=== PATIENT | male | born 1940 | race Caucasian/White ===

== ENCOUNTER 2020-12-04 10:17 | Inpatient (IN) | payer OTHER, MEDICARE ==
[~2020-12-04] VITALS: Ht 170.2 cm; Wt 64.4 kg
--- NOTE | ~2020-12-04 | EMS ---
[address] [address] EMS Patient Care Report Name: LUCILA,HOMER Room #: 458-P ADM IN M.R.#: [id number] Admission: 12/04/20 Attend Phys: Calvin Xiong MD Discharge: Date of : 39 Report #: [id number] THIS REPORT FOR: //name// Report Transmitted: 12/05/2020 10:31 EMS Care Summary [place], [place]/[facility] Incident [id number] @ 12/04/2020 09:41 Incident Location [id number] [place] [address] Patient HOMER LUCILA Male, 80 Years 1940 Patient Address [address] [place] [address] Patient History Cardiac Arrythmia, Patient Allergies Sulfa, Patient Medications Metoprolol, Flecainide, Synthroid, Chief Complaint Chest Pain After Fall Disposition Transported No Lights/[place] Dispatch Reason Chest Pain (Non-Traumatic) Transported To [facility] Narrative pt states that he was getting out of bed go to the bathroom this morning when he got dizzy and fell. pt states that he had skin tears on his arms after the fall. pt states that he was able to crawl back in bed. pt called his sister to come bandage his his arm. pts sister states that while she was there pt [address] [address] EMS Patient Care Report Name: LUCILA,HOMER Room #: 458-P ADM IN M.R.#: [id number] Admission: 12/04/20 Attend Phys: Calvin Xiong MD Discharge: Date of : 39 Report #: [id number] attempted to get out of bed again and fell. pts sister requested ems. upon ems arrival, pt found walking to stretcher w/ assistance from p28 crew. pt assisted to stretcher by ems and p28 crew. pt secured to stretcher using seat belts. Initial Vitals @10:00P: 65,BP: 101/64,CO: 0,SpO2: 98, @09:56P: 71,R: 16,BP: 105/68,Pain: 8/10,GCS: 15,SpO2: 97,Revised Trauma: 12, Assessments @09:54MENTAL:Person Oriented,Place Oriented,Time Oriented,Event Oriented,SKIN:HEENT:Eyes: Left Pupil: 3-mm,Eyes: Right Pupil: 3-mm,LUNG SOUNDS:ABDOMEN:PELVIS//GI:EXTREMITIES:Capillary Refill: Left Upper: < 2 Sec,PULSE:Radial: 2+ Normal,NEURO: Impression Injury of Thorax (Upper Chest) Procedures @09:54ALS AssessmentResponse: UnchangedSucceeded@09:593-Lead ECGResponse: UnchangedSucceeded Timeline 09:39,Call Received 09:39,Dispatch Notified 09:41,Dispatched 09:43,En Route 09:51,On Scene 09:54,At Patient 09:54,ALS Assessment,Response: UnchangedSucceeded, 09:56,BP: 105/68 M,PULSE: 71,RR: 16 R,SPO2: 97 Ox,ETCO2: ,BG: ,PAIN: 8,GCS: 15, 09:59,3-Lead ECG,Response: UnchangedSucceeded, 10:00,BP: 101/64 M,PULSE: 65,RR: R,SPO2: 98 Ox,ETCO2: ,BG: ,PAIN: ,GCS: , 10:02,Depart Scene 10:11,At Destination 10:23,Call Closed Disclaimer v1.1 Copyright 2020 [employer] This EMS Care Summary contains data elements from the applicable legal record (which may be displayed differently). It is designed to provide pertinent information for the following purposes: continuity of care, clinical quality, and state data reporting. The complete legal record is available to ED staff and administrators of the receiving hospital in [employer]'s Patient Tracker. All data is provided "as is."
--- NOTE | ~2020-12-04 | HC ---
[facility] [place] [address] CONSULTATION Name: LUCILA,HOMER Room #: 458-[facility] IN M.R.#: [id number] Admission: 12/04/20 Attend Phys: Calvin Xiong MD Discharge: Date of : 39 Report #: [id number] THIS REPORT FOR: cc: Antonieta Maria K. Steven DO Smithson, David G. MD ~ HISTORY OF PRESENT ILLNESS: The patient is an 80-year-old white male with history of arrhythmias, who was admitted with a fall with dizziness. He has had recurrent falls over the last couple of weeks. No loss of consciousness or head trauma. He has been admitted, diagnosed with pneumonia, hyponatremia, has multiple bruises and lacerations. He was evaluated by Physical Therapy, but they held off as he has a significant bruise involving the left knee and there is some swelling and there is noted to be a possible x-ray which the staff is arranging. We are seeing him in rehabilitation medicine consultation. PAST MEDICAL HISTORY: Includes arrhythmia, recent COVID vaccination Brayden and Brayden a couple of weeks ago. MEDICATIONS: Please see the full medication listing. ALLERGIES: No known drug allergies. SOCIAL HISTORY: Lives in a house alone 4-5 steps in, then in the living area there is another 5-8 steps up to the bedroom. It sounds like he has a split level type house. He did use a cane in the evenings when he get up to go to the bathroom. Otherwise, he has a walker or cane available. He has an involved sister that lives in the [place] area as well as involved neighbor. REVIEW OF SYSTEMS: Did not offer any current complaints of chest pain, shortness of breath or abdominal discomfort. He has some discomfort with his multiple areas of bruising from the falls. PHYSICAL EXAMINATION: GENERAL: He is a pleasant 80-year-old white male, somewhat hard of hearing, pleasant, rather irradiate. VITAL SIGNS: Temperature 98.2, pulse 88, respirations 18, blood pressure 122/70. He is alert, pleasant, oriented. HEENT: Appeared to be benign. NEUROLOGIC: Cranial nerves are grossly intact. Functional range of motion of both upper extremities without obvious focal weakness. Lower extremities: He does have significant bruising of the medial knee, including across the anterolateral wasserman. He is able to lift up the left lower extremity, however, and flexes at the hip and the knee without obvious discomfort. I did not do a focal directed knee examination as I understand there may be some x-rays that are pending. No focal calf swelling. Can dorsiflex the left ankle. Strength [address] [address] CONSULTATION Name: LUCILA,HOMER Room #: [address] [place] [address] IN M.R.#: [id number] Admission: 12/04/20 Attend Phys: Calvin Xiong MD Discharge: Date of : 39 Report #: [id number] is probably at least a grade 4-/5 distally. Right lower extremity reveals strength at probably a 3+ to 4-/5. No focal calf swelling. ASSESSMENT: An 80-year-old white male with the following problem list: 1. Pneumonia. 2. History of multiple falls at home. 3. Multiple bruises, extremity lacerations with a left knee bruise and apparent x-ray that is being arranged. 4. History of dizziness/weakness. 5. Hyponatremia on normal saline hydration, sodium was noted to be 129. 6. History of arrhythmia. 7. Moderate protein calorie malnutrition. PLAN: Physical therapy was temporarily placed on hold with the left knee bruising and swelling as noted above. We will be glad to follow along with you regarding his rehab therapy needs. By: [id number] Gabo Ford MD /nt
[2020-12-04 10:23] VITALS: BP 122/67
[2020-12-04 10:39] LABS: ABSOLUTE NEUTROPHILS 10.8 thou/uL (1.4-8.2); BASOPHILS 0.4 % (0.0-2.0); EOSINOPHILS 0.1 % (0.0-3.0); HEMATOCRIT 39.1 % (42.0-52.0); HEMOGLOBIN 13.4 gm/dL (14.0-18.0); LYMPHOCYTES 6.3 % (24.0-44.0); MCH 34.1 pg (26.0-34.0); MCHC 34.2 g/dL (28.0-37.0); MCV 99.7 fL (80.0-100.0); PLATELET COUNT 334 thou/uL (150-400); POLYS 87.2 % (36.0-66.0); RBC 3.93 mil/uL (4.50-6.00); WBC 12.4 thou/uL (4.0-11.0)
[2020-12-04 10:53] LABS: ANION GAP 12 mmol/L (7-16); BUN 10 mg/dL (7-18); CALCIUM 8.6 mg/dL (8.5-10.1); CHLORIDE 95 mmol/L (98-107); CO2 22 mmol/L (21-32); GLUCOSE 159 mg/dL (74-106); POTASSIUM 4.2 mmol/L (3.5-5.1); SODIUM 129 mmol/L (136-145)
[2020-12-04 11:02] LABS: ALBUMIN 3.3 g/dL (3.4-5.0); SGOT 23 U/L (15-37); SGPT 23 U/L (16-63); TOTAL BILIRUBIN 0.6 mg/dL (0.2-1.0); TOTAL PROTEIN 6.7 g/dL (6.4-8.2); TROPONIN-I <0.06 ng/mL (<0.06)
--- NOTE | 2020-12-04 11:40 | EKG ---
[address] [place] [address] ELECTROCARDIOGRAM REPORT Name: FRANCISCO GAYTAN [id number] Admission: Attend Phys: Discharge: Date of : 38 Report #: [id number] [facility] ED Test Date: 2020-12-04 Test Time: 10:55:44 Pat Name: ZENYR LUCILA Department: Room: Gender: Certified Hyperbaric Technician: OBED : 1940 Requested By: Tony Diaz Order Number: [id number] MD: Arnaldo Rutledge Measurements Intervals [place] Rate: 58 P: 57 [place]: 163 QRS: -51 QRSD: 135 T: 49 QT: 442 QTc: 435 Interpretive Statements Sinus rhythm RBBB and LAFB No previous ECG available for comparison Electronically Signed On 12-04-2020 11:39:46 CDT by Arnaldo Rutledge [email or web address] <ELECTRONICALLY SIGNED> By: Arnaldo Rutledge MD, [facility] 12/04/20 1139 1055 1055 Arnaldo Rutledge MD, FACC /EPI
[2020-12-04 14:34] LABS: FOLIC ACID 29.9 ng/mL (8.6-58.9)
[2020-12-04 17:33] LABS: URINE BILIRUBIN NEGATIVE (Negative); URINE BLOOD 1+ (Negative); URINE CLARITY CLEAR; URINE COLOR YELLOW; URINE GLUCOSE-RANDOM* NEGATIVE (Negative); URINE KETONES TRACE (Negative); URINE LEUKOCYTES-REFLEX NEGATIVE (Negative); URINE NITRITE-REFLEX NEGATIVE (Negative); URINE PROTEIN (DIPSTICK) NEGATIVE (Negative); URINE UROBILINOGEN 0.2 E.U./dl (0.2-1.0)
[2020-12-04 17:47] VITALS: BP 129/87
[2020-12-04 18:04] LABS: SQUAMOUS None Seen /LPF (0-3)
[2020-12-04 18:05] LABS: BACTERIA-REFLEX 1-9 Few /HPF (None Seen); CASTS None Seen /LPF (None Seen); URINE RBC 3-10 Few /HPF (NONE SEEN); URINE WBC-REFLEX 0-5 Rare /HPF (0-5)
[2020-12-04 18:06] LABS: CRYSTALS None Seen /LPF (None Seen)
--- NOTE | 2020-12-04 18:42 | NUR ---
PATIENT ON UNIT AROUND 1809. VITAL SIGNS TAKEN AND PATIENT ORIENTED TO ROOM.
[2020-12-04 19:50] VITALS: BP 120/73
--- NOTE | 2020-12-05 01:53 | NUR ---
PT WAS IN BED DURING SHIFT AND WAS REPORTED TO JUST GET TO THE UNIT FROM THE ER.PT IS A/O X4.PT ADMITTED WITH C/O MULTI FALL AND PT HAS TEARS ON VISHNU UPPER EXTREMITY.PT IS [employer] AND DIDNOT BRING HEARING AIDS.ADMISSION ASSESSMENT AND PICTURES TAKEN.PT DENIED PAIN AND N/V. TEARS COVERED WITH BOREDR FOAM.PT IS ON TELE.WILL CONTINUE TO MONITOR
[2020-12-05 05:36] LABS: ABSOLUTE NEUTROPHILS 4.5 thou/uL (1.4-8.2); BASOPHILS 0.8 % (0.0-2.0); EOSINOPHILS 0.3 % (0.0-3.0); HEMATOCRIT 34.2 % (42.0-52.0); HEMOGLOBIN 11.8 gm/dL (14.0-18.0); LYMPHOCYTES 17.8 % (24.0-44.0); MCHC 34.4 g/dL (28.0-37.0); MCV 98.8 fL (80.0-100.0); MONOCYTES 8.8 % (1.0-8.0); PLATELET COUNT 289 thou/uL (150-400); POLYS 72.3 % (36.0-66.0); RBC 3.46 mil/uL (4.50-6.00); RDW 14.1 % (10.5-14.5); WBC 6.2 thou/uL (4.0-11.0)
[2020-12-05 05:43] LABS: CREATININE 0.6 mg/dL (0.7-1.3); POTASSIUM 3.6 mmol/L (3.5-5.1)
[2020-12-05 07:35] VITALS: BP 122/70
--- NOTE | 2020-12-05 14:51 | NUR ---
ASSUMED PT CARE THIS AM. PT A&OX4, ABLE TO MAKE NEEDS KNOWN. PATIENT IS HARD OF HEARING. PATIENT HAS REMAINED CONTINENT THIS SHIFT. IV PATENT, MEDICATIONS GIVEN WITHOUT ISSUE. DRESSINGS ARE C/D/I. PATIENT IS ON ROOM AIR. PATIENT REMAINS ON TELE. FALL PRECAUTIONS ARE IN PLACE, CALL LIGHT WITHIN REACH. PATIENT REPORTS NO PAIN, NUMBNESS, OR TINGLING. THIS PATIENT WAS NOTICED TO HAVE SOME SWELLING AND BRUISING TO LEFT KNEE, HOSPITALIST WAS MADE AWARE.
[2020-12-05 16:25] VITALS: BP 128/88
[2020-12-05 20:18] VITALS: BP 139/83
--- NOTE | 2020-12-06 06:35 | NUR ---
PATIENT IS [place]. PATIENT C/O CONSTIPATION PRN MILARAX GIVEN AWAITING FOR RESULTS.FALL PRECAUTION IN PLACE. PATIENT IN BED ASLEEP AT THIS TIME BREATHING REGULAR AND UNLABOURED.
[2020-12-06 07:50] VITALS: BP 112/80
--- NOTE | 2020-12-06 11:56 | NUR ---
ASSUMED PT CARE THIS AM. PT A&OX4, ABLE TO MAKE NEEDS KNOWN. IV PATENT, MEDICATIONS INFUSED WITHOUT ISSUE. PATIENT TOOK PO MEDICATIONS WELL. PATIENT LEFT KNEE SWOLLEN, BUT PATIENT REPORTING NO PAIN. PATIENT IS EXTREMELY HARD OF HEARING, ABLE TO READ WITHOUT DIFFICULTY. PATIENT AMBULATING WITH PHYSICAL THERAPY AND HEART RATE RANGED FROM 160'S TO 200'S, ACTIVITY STOPPED TO ALLOW HEART RATE TO DECREASE. HOSPITALIST ORDERED AN EKG AND A CARDIOLOGY CONSULT. PATIENT REMAINS CONTINENT OF BLADDER. ON ROOM AIR. FALL PRECAUTIONS ARE IN PLACE, CALL LIGHT WITHIN REACH.
--- NOTE | 2020-12-06 12:02 | EKG ---
[address] [address] ELECTROCARDIOGRAM REPORT Name: FRANCISCO GAYTAN Room #: 458- ADM IN M.R.#: [id number] Admission: 12/04/20 Attend Phys: Calvin Xiong MD Discharge: Date of : 39 Report #: [id number] [facility] Test Date: 2020-12-06 Test Time: 10:38:04 Pat Name: ZENYR LUCLIA Department: Room: [facility] Gender: M E Tailer: SBULPONCHO : 1940 Requested By: Calvin Xiong Order Number: [id number] : Arnaldo Rutledge Measurements Intervals [place] Rate: 113 P: 78 SC: 150 QRS: -52 QRSD: 122 T: 44 QT: 338 QTc: 464 Interpretive Statements Sinus tachycardia with irregular rate RBBB and LAFB Compared to ECG 12/04/2020 10:55:44 Sinus rhythm no longer present Electronically Signed On 12-06-2020 12:02:01 CDT by Arnaldo Rutledge [email or web address] <ELECTRONICALLY SIGNED> By: Arnaldo Rutledge MD, [facility] 12/06/20 1202 1038 1038 Arnaldo Rutledge MD, FACC /EPI
--- NOTE | 2020-12-06 13:33 | 2DMMODE ---
[facility] [place] [address] 2 D/M-MODE ECHOCARDIOGRAM Name: LUCILAHOMER Room #: 458-P ADM IN M.R.#: [id number] Admission: 12/04/20 Attend Phys: Calvin Xiong MD Discharge: Date of : 39 Report #: [id number] THIS REPORT FOR: cc: Antonieta Maria K. Steven DO Santiago, Patrick MD [facility] ~ APPROVED REPORT Study performed: 12/06/2020 12:41:09 EXAM: Comprehensive 2D, Doppler, and color-flow Echocardiogram Patient Location: Bedside Room #: [facility] Status: routine BSA: 1.75 HR: 130 bpm BP: 112/80 mmHg Rhythm: TACHY/ARRHYTHMIA/RBBB Other Information Study Quality: Fair/not all measurements taken. Indications Arrhythmia. (Heart rate ranged from 100-150 during exam). 2D Dimensions IVSd: 10.18 (7-11mm) LVOT Diam: 19.54 (18-24mm) LVDd: 40.85 mm PWd: 8.85 (7-11mm) LVDs: 31.06 (25-40mm) Aortic Valve AoV Peak Bob.: 1.37 m/s AO Peak Gr.: 7.51 mmHg LVOT Max P.01 mmHg LVOT Max V: 0.87 m/s FREEMAN Vmax: 1.90 cm2 Mitral Valve E/A Ratio: 0.7 MV Decel. Time: 179.42 ms MV E Max Bob.: 0.50 m/s MV A Bob.: 0.76 m/s [facility] [address] [place] [address] 2 D/M-MODE ECHOCARDIOGRAM Name: LUCILA,HOMER Room #: 458-P [facility] IN .R.#: [id number] Admission: 12/04/20 Attend Phys: Calvin Xiong MD Discharge: Date of : 39 Report #: [id number] MV PHT: 52.03 ms Tricuspid Valve TR Peak Bob.: 2.53 m/s TR Peak Gr.: 26.00 mmHg Left Ventricle The left ventricle is normal size. There is normal LV segmental wall motion. There is normal left ventricular wall thickness. Left ventricular systolic function is normal. LVEF is 55%. Mild diastolic dysfunction is present (impaired relaxation pattern). Right Ventricle The right ventricle is normal size. The right ventricular systolic function is normal. Atria The left atrium size is normal. The right atrium size is normal. Aortic Valve The aortic valve is not well visualized. Leaflets appear mildly calcified. No aortic regurgitation is present. There is no aortic valvular stenosis. Mitral Valve The mitral valve is normal in structure. Trace mitral regurgitation. Tricuspid Valve The tricuspid valve is normal in structure. Trace tricuspid regurgitation. Estimated PAP is 26mmHg plus the Right atrial pressure. Pulmonic Valve Pulmonic valve is not well visualized. Great Vessels The aortic root is normal in size. Ascending aorta is not well visualized. IVC is not well visualized. Pericardium There is no pericardial effusion. <Conclusion> [facility] [address] [place] [address] 2 D/M-MODE ECHOCARDIOGRAM Name: LUCILA,HOMER Room #: 458-P [facility] IN M.R.#: [id number] Admission: 12/04/20 Attend Phys: Calvin Xiong MD Discharge: Date of : 39 Report #: [id number] Tachycardia/atrial fibrillation during the study Normal left ventricular size/wall thickness Ejection fraction 60% Normal right ventricular size/function Normal atrial size Color-flow Doppler study was performed of the aortic/mitral/tricuspid/pulmonary valve Aortic valve mildly calcified, no stenosis Trace mitral valve insufficiency Trace tricuspid valve insufficiency Pulmonary systolic pressure estimated 26 mmHg Ascending aorta not well visualized No pericardial effusion <ELECTRONICALLY SIGNED> By: Arnaldo Rutledge MD, FACC 12/06/20 1333 32 32 Arnaldo Rutledge MD, FACC /INF
--- NOTE | 2020-12-06 14:40 | NUR ---
PT ADMITTED RELATED TO FALLS, DIZZINESS. CM REVIEWED CHART AND SPOKE WITH CARE TEAM. CM MET WITH PT AT BEDSIDE THIS DAY. PT APPEARED TO BE A&O X4 BUT VERY [place]. CM CALLED PT'S SISTER WHO RESIDES IN [place]. SHE INDICATED PT RESIDES IN A HOUSE ALONE WITH 6 STEPS TO ENTER AND 6 STEPS INSIDE. SHE INDICATED PT USES A WALKING STICK/CANE AND A FWW FOR ASSISTANCE WITH AMBULATION. PT HAD BEEN INDEPEDNENT WITH ADLS MARINA MANAGER. PT INDICATED HE IS RECEPTIVE TO REHAB STAY. ORTHO AND CARDIOLOGY CONSULTED. XRAY ORDERED FOR POSIBLE ASPIRATION. PT TO HAVE AN ECHO. 5N CONSULTED AND INDICATED THEY COULD ACCEPT PT ONCE MEDICALLY STABLE. PT IS AGREEABLE. CM FOLLOWING REGARDING DC PLANNING.
[2020-12-06 16:50] VITALS: BP 133/78
[2020-12-06 20:03] VITALS: BP 125/87
[2020-12-07 00:06] LABS: GLYCOHEMOGLOBIN (HGB A1C) 5.4 % (4.8-5.6)
--- NOTE | 2020-12-07 06:03 | NUR ---
PT TRANSFERRING TO BEDSIDE COMMODE WITH ASSIST AND IS TOLERATING FAIR. SEVERAL BM'S THIS SHIFT. DENIES PAIN. RESTING COMFORTABLY. NO NEEDS VOICED. CALL LIGHT WITHIN REACH. FREQUENT OBSERVATION.
[2020-12-07 07:30] VITALS: BP 124/77
--- NOTE | 2020-12-07 07:33 | NUR ---
Assume patient care at 7:30am.
--- NOTE | 2020-12-07 07:48 | NUR ---
Patient HR elevated, arrhythmia; according to the night guard report, patient had quite a few bowl movements last night; DIRECTOR PROCESS IMPROVEMENT reported that the patient put his finger into his throat and vomited. Called the number of Dr. Mcintosh, no response. Texted Dr. Xiong about the situation. Patient has not had complaint so far.
--- NOTE | 2020-12-07 11:56 | NUR ---
ORTHO ASSESSED PT AND INDICATED NO INTERVENTION INDICATED. CARDIOLOGY ASSESSED AND INDICATED THAT THEY WILL CONTINUE TO MONITOR ON TELE. CARE TEAM INDICATED THAT PT WILL REMAIN ON TELE TO BE MONITORED BY CARDIOLOGY OVER THE WEEKEND. ANTICIPATE DC TO 5N ONCE MEDICALLY STABLE BEGINING OF NEXT WEEK. CM FOLLOWING REGARDING DC PLANNING.
[2020-12-07 16:04] VITALS: BP 122/84
--- NOTE | 2020-12-07 19:36 | NUR ---
Patient got up without calling, pocked his throat to vomit 3 times this am, voicing that there was bad taste in the throat. primary doctor was aware of it.
[2020-12-07 20:42] VITALS: BP 135/78
--- NOTE | 2020-12-08 03:03 | NUR ---
PT CARE ASSUMED WITH PT IN BED WATCHING TV.PT IS A/O X4.PT IS UP TO BSC WITH X1 ASSIST AND USES A URINAL.PT HAS TEARS ON VISHNU UE FROM FALLS.PT TAKE MEDS WHOLE WITH NO ISSUES AND DENIED PAINS.WILL CONTINUE TO MONITOR
[2020-12-08 07:16] VITALS: BP 127/79
[2020-12-08 11:31] LABS: ABSOLUTE NEUTROPHILS 3.8 thou/uL (1.4-8.2); BASOPHILS 1.1 % (0.0-2.0); EOSINOPHILS 1.7 % (0.0-3.0); HEMATOCRIT 37.2 % (42.0-52.0); HEMOGLOBIN 12.8 gm/dL (14.0-18.0); MCH 33.8 pg (26.0-34.0); MCHC 34.4 g/dL (28.0-37.0); MCV 98.3 fL (80.0-100.0); MONOCYTES 9.9 % (1.0-8.0); PLATELET COUNT 375 thou/uL (150-400); POLYS 67.3 % (36.0-66.0); RBC 3.79 mil/uL (4.50-6.00); RDW 14.1 % (10.5-14.5); WBC 5.7 thou/uL (4.0-11.0)
[2020-12-08 12:00] LABS: ALBUMIN 3.1 g/dL (3.4-5.0); CALCIUM 8.6 mg/dL (8.5-10.1); CREATININE 0.8 mg/dL (0.7-1.3); MAGNESIUM 1.9 mg/dL (1.8-2.4); POTASSIUM 4.2 mmol/L (3.5-5.1); TOTAL BILIRUBIN 0.6 mg/dL (0.2-1.0); TOTAL PROTEIN 6.9 g/dL (6.4-8.2)
--- NOTE | 2020-12-08 15:33 | NUR ---
5N FOLLOWING FOR REHAB ADMISSION. PATIENT IS NOT ABLE TO ADMIT AT THIS TIME DUE TO CONTINUED TELEMONITORING NEEDS.
[2020-12-08 16:05] VITALS: BP 128/79
--- NOTE | 2020-12-08 17:14 | NUR ---
Patient is wanting to walk in hallways and he is very weak. Nurse explained to patient he is suppose to disharge to rehab next week to get stronger so he can walk more. Right forearm IV infiltrated. Nurse and charge nurse tried to place IV and was unable to. IV nurse paged.
[2020-12-08 20:48] VITALS: BP 134/71
--- NOTE | 2020-12-09 05:51 | NUR ---
Pt. rested quietly during the night when checked on during frequent rounds. He wanted one tylenol for c/o pain to his left side of his ribs (see emar) which was helpful. Bed alarm is on.
--- NOTE | 2020-12-09 17:41 | NUR ---
Patient has got out of bed 4 times today without pulling call light. Bed alarm is on. and charge nurse notified. Has tolerated IV ABT azithromycin and ceftriaxone.Bilateral arms have foams and gagandeep wrap. No pain noted this shift.
[2020-12-09 21:10] VITALS: BP 128/96
--- NOTE | 2020-12-10 04:53 | NUR ---
Pt. rested quietly during the night when checked on during frequent rounds. He requested a tums for a upset stomach (see emar) with some relief noted. Pt. uses the urinal. Bed alarm is on.
[2020-12-10 06:15] LABS: ABSOLUTE NEUTROPHILS 3.3 thou/uL (1.4-8.2); BASOPHILS 1.3 % (0.0-2.0); EOSINOPHILS 3.7 % (0.0-3.0); HEMATOCRIT 34.8 % (42.0-52.0); HEMOGLOBIN 12.2 gm/dL (14.0-18.0); LYMPHOCYTES 23.2 % (24.0-44.0); MCH 34.2 pg (26.0-34.0); MCHC 34.9 g/dL (28.0-37.0); MONOCYTES 11.5 % (1.0-8.0); PLATELET COUNT 349 thou/uL (150-400); POLYS 60.3 % (36.0-66.0); RBC 3.55 mil/uL (4.50-6.00); RDW 13.6 % (10.5-14.5); WBC 5.4 thou/uL (4.0-11.0)
[2020-12-10 06:24] LABS: ALBUMIN 2.8 g/dL (3.4-5.0); CALCIUM 8.3 mg/dL (8.5-10.1); CREATININE 0.7 mg/dL (0.7-1.3); PHOSPHORUS 3.3 mg/dL (2.5-4.9); POTASSIUM 3.8 mmol/L (3.5-5.1); TOTAL BILIRUBIN 0.5 mg/dL (0.2-1.0); TOTAL PROTEIN 6.3 g/dL (6.4-8.2)
[2020-12-10 07:15] VITALS: BP 111/66
[2020-12-10 09:35] VITALS: BP 111/66
--- NOTE | 2020-12-10 10:58 | NUR ---
ASSUMED PT CARE THIS AM. PT A&OX3, ABLE TO MAKE NEEDS KNOWN. PATIENT REMAINS CONTINENT, USING A URINAL OR UP TO BEDSIDE COMMODE WHEN NEEDED. PATIENT IS HARD OF HEARING. PATIENT REPORTS NO PAIN, NUMBNESS, OR TINGLING. DRESSING TO RIGHT UPPER EXTREMETY CHANGED. IV WAS DISLODGED WHEN PATIENT WAS TRANSFERING TO CHAIR, PRESSURE HELD FOR 15 MINUTES BEFORE IT STOPPED BLEEDING, MORNING ENOXAPARIN HELD DUE TO THIS. AWAITING IV TEAM FOR A NEW IV AT THIS TIME. PATIENT TOOK MORNING MEDICATIONS WITHOUT ISSUE. PATIENT REMAINS ON TELE. FALL PRECAUTIONS ARE IN PLACE, CALL LIGHT WITHIN REACH. CARDIOLOGY NURSE PRACTITIONER IN ROOM WHILE PASSING MORNING MEDICATIONS AND ADVISED TO GIVE AM DOSE OF METOPROLOL ORDERED EVEN WITH BLOOD PRESSURE.
[2020-12-10] MEDS ORDERED: METOPROLOL SUCC25 M1 PO (11:11)
[2020-12-10] MEDS ORDERED: TAMBOCOR 100 M100 M1 PO (11:11)
[2020-12-10] MEDS ORDERED: CEFUROXIME250 MG PO (11:11)
--- NOTE | 2020-12-10 14:54 | NUR ---
CARE TEAM INDICATED THAT PT IS MEDICALLY STABLE TO DC TO 5N THIS DAY. PT IS AWARE AND AGREEABLE. PT TO HAVE BATCH ANALYST ADMINISTERD PTD. NO OTHER CM INTERVENTION INDICATED. CASE CLOSED.
== END 2020-12-10 17:03 | DRG 194 ==
LOC: ER 10:17 → 4W 16:34 → EROBS 16:34 → 4W 17:31
PROVIDERS: Emergency Medicine; Internal Medicine; Nurse Practitioner; ADMIT Hospitalist; ATTEND Hospitalist
DX: J18.9 Pneumonia, unspecified organism (principal); E87.1 Hypo-osmolality and hyponatremia; E44.0 Moderate protein-calorie malnutrition; R73.9 Hyperglycemia, unspecified; E03.9 Hypothyroidism, unspecified; N40.0 Benign prostatic hyperplasia without lower urinary tract symptoms; N13.9 Obstructive and reflux uropathy, unspecified; R39.11 Hesitancy of micturition; E55.9 Vitamin D deficiency, unspecified; G31.84 Mild cognitive impairment of uncertain or unknown etiology; N18.30 Chronic kidney disease, stage 3 unspecified; M17.12 Unilateral primary osteoarthritis, left knee; S80.02XA Contusion of left knee, initial encounter; W18.39XA Other fall on same level, initial encounter; D64.9 Anemia, unspecified; Z20.822 Contact with and (suspected) exposure to COVID-19; Z68.22 Body mass index [BMI] 22.0-22.9, adult; Y93.89 Activity, other specified; Y92.89 Other specified places as the place of occurrence of the external cause; Y99.8 Other external cause status; Z23 Encounter for immunization
CPT/HCPCS: 10040; 10045

== ENCOUNTER 2020-12-10 14:48 | Inpatient (IN) | payer OTHER, MEDICARE ==
[2020-12-09 16:00] VITALS: BP 136/85
[~2020-12-10] VITALS: Ht 170.2 cm; Wt 66.2 kg
--- NOTE | ~2020-12-10 | PLAN ---
[facility] [place] [address] REHAB UNIT PLAN OF CARE Name: LUCILAHOMER Room #: 506-1 ADM IN M.Paulette.#: [id number] Admission: 12/10/20 Attend Phys: Gabo Ford MD Discharge: Date of : 38 Report #: [id number] THIS REPORT FOR: cc: Antonieta Maria K. Steven DO Smithson,Gabo Horne MD ~ DATE OF SERVICE: 12/12/2020 HISTORY OF PRESENT ILLNESS: The patient is seen back today in followup. He is in no distress. He is very hard of hearing, which is his baseline. Afebrile, vital signs are stable. No focal calf swelling. Left knee ecchymosis is slowly decreasing. He is tolerating his therapies quite well. Contact guard sit to stand, ambulating 80 feet contact guard with a front-wheeled walker. He is going up and down eight steps with contact guard assistance. In occupational therapy, lower body dressing, standby with upper body, supervision. In speech therapy, he does have moderate cognitive deficits. He is on a regular diet with thin liquids. ASSESSMENT: 1. Medical complexity with multifactorial gait instability and recurrent falls. 2. History of closed head injury, status post fall. 3. Community-acquired pneumonia. 4. Left knee contusion, status post fall. 5. Atrial tachycardia with bradycardia, possible sick sinus syndrome. 6. Hyponatremia. 7. Anemia. PLAN: The overall plan of care is based on the pre-admit screen and information garnered from therapy assessments. 1. Estimated length of stay: Anticipated discharge as per team conference either this Thursday, the or possibly next 12/18/2020 depending upon how he progresses. 2. Medical prognosis is reasonably good. 3. Anticipated interventions includes the interdisciplinary acute inpatient rehabilitation program. 4. Anticipated functional outcomes would be for the patient to become modified independent with transfers, mobility, ADLs and improvement with overall independence plus improvement in overall cognition, so that he can return back to the home setting. 5. Discharge destination would be back to his home [place] [employer] [facility] level house 4-5 steps in. Sister notes he can check in on him closely post-discharge. 6. Expected therapy by discipline includes PT, OT and speech 1 hour per day each five days a week throughout the duration of the acute inpatient rehabilitation stay. ADDENDUM: The patient's prognosis for significant practical improvement within [address] [address] REHAB UNIT PLAN OF CARE Name: ZENY GAYTANR Room #: 506-1 ADM IN [facility]#: [id number] Admission: 12/10/20 Attend Phys: Gabo Ford MD Discharge: Date of : 38 Report #: [id number] a reasonable period of time appears good. Given the patient's complex medical condition and risk of further medical complication, rehabilitation services could not be safely provided at a lower level of care such as a long-term facility. By: [id number] Gabo Ford MD /nt
--- NOTE | ~2020-12-10 | H ---
[facility] [place] [address] HISTORY AND PHYSICAL Name: LUCILA,HOMER Room #: 506-1 ADM IN M.R.#: [id number] Admission: 12/10/20 Attend Phys: Gabo Ford MD Discharge: Date of : 39 Report #: [id number] THIS REPORT FOR: cc: Antonieta Maria K. Steven DO Smithson,Gabo Horne MD ~ DATE OF SERVICE: 12/11/2020 HISTORY OF PRESENT ILLNESS: The patient has now been admitted for acute in-hospital inpatient rehabilitation. He has had problems with recurrent falls at home. CT of the head was negative. He was found to have community-acquired pneumonia, started on IV antibiotics, thought to have possible sick sinus syndrome, having atrial tachycardia with rates up to the 180s. He has had his medications adjusted for rate control. He has left knee bruise. Orthopedics has been involved. No aspiration warranted. Symptoms have improved with topical ice. He has also been monitored for some electrolyte abnormalities. He has been admitted now for acute in-hospital inpatient rehabilitation. PAST MEDICAL HISTORY, ALLERGIES, SOCIAL HISTORY, HABITS: Please see the documentation. CURRENT MEDICATIONS: Per the MAR. REVIEW OF SYSTEMS: Well documented with the 14-point review of systems. He has no chest pain, shortness of breath, abdominal discomfort. PHYSICAL EXAMINATION: GENERAL: He was pleasant, alert, oriented x 3, follows basic 1-step commands. No obvious distress. He is very hard of hearing, but is able to follow basic commands. HEENT: Some bruising, otherwise appeared benign. NECK: No lymphadenopathy. CHEST: Sounded intact, maybe some diffuse decreased breath sounds. CARDIOVASCULAR: Regular rate and rhythm. ABDOMEN: Bowel sounds positive, nontender. GENITOURINARY AND RECTAL: Deferred. EXTREMITIES: Functional range of motion of both upper extremities, strength is probably a grade 4-/5. Lower extremities functional range of motion, strength is grade 4-/5. He does have significant bruising of that left knee and along the wasserman, but it does not appear to involve the actual joint. No obvious instability. He is min assist coming to stand and is ambulating a short distance with a front-wheeled walker. ASSESSMENT: An 80-year-old white male with the following problem list: 1. Medical complexity with generalized debilitation and recurrent falls. 2. Closed head injury, status post fall. Denied loss of consciousness, but did [facility] [address] [place] [address] HISTORY AND PHYSICAL Name: LUCILA,HOMER Room #: 506-1 [facility] IN [facility]#: [id number] Admission: 12/10/20 Attend Phys: Gabo Ford MD Discharge: Date of : 39 Report #: [id number] hit his head. He has had problems with associated dizziness. 3. Community-acquired pneumonia. 4. Left knee contusion, status post fall. 5. Atrial tachycardia and bradycardia with possible sick sinus syndrome. 6. Hyponatremia. 7. Anemia. PLAN: The patient has been admitted for acute in-hospital inpatient rehabilitation. He was premorbidly quite independent as is noted living alone and the goal is to improve his overall functional independence, so he can return back to that situation if at all possible. As far as risk of complications, he does have the multiple medical comorbidities as noted above. Initial plan of care involves the interdisciplinary acute inpatient rehabilitation program. Prognosis is reasonably good with estimated length of stay probably in the area of 7 to 10 days. Potential barriers would include his multiple medical comorbidities and decreased functional status. The patient meets diagnostic criteria for an acute in-hospital inpatient rehabilitation stay. He meets the medical necessity criteria. He does have the tolerance for therapies and has appropriate discharge goals back to the home setting. I agree with the documentation as noted in the nurse practitioner note from earlier today. By: [id number] Gabo Ford MD /nt
--- NOTE | ~2020-12-10 | PLAN ---
[facility] [place] [address] REHAB UNIT PLAN OF CARE Name: LUCILAHOMER Room #: 506-1 ADM IN M.R.#: [id number] Admission: 12/10/20 Attend Phys: Gabo Ford MD Discharge: Date of : 39 Report #: [id number] THIS REPORT FOR: cc: Antonieta Maria K. Steven DO Smithson, David G. MD ~ ADDENDUM PROGRESS NOTE AND OVERALL PLAN OF CARE The patient's prognosis for significant practical improvement within a reasonable period of time appears good. Given the patient's complex medical condition and risk of further medical complication, rehabilitation services could not be safely provided at a lower level of care such as a assisted facility. By: [id number] Gabo Ford MD /nt
[~2020-12-10 14:48] MED LIST: CEFUROXIME250 MG PO; METOPROLOL SUCC25 M1 PO; TAMBOCOR 100 M100 M1 PO
--- NOTE | 2020-12-10 22:52 | NUR ---
PT ALERT AND ORIENTED X 4, FORGETFUL. VERY [place] AND DIFFICULT TO COMMUNICATE WITH. DOES GET NEEDS EXPRESSED. VOIDING PER URINAL. PT TOOK HS MEDS WITH WATER WITHOUT DIFFICULTY. PT DENIES PAIN OR DISCOMFORT. BED ALARM ON FOR SAFETY. PT HAS BEEN AWAKE SO FAR TONIGHT.
[2020-12-11 05:55] LABS: HEMATOCRIT 34.5 % (42.0-52.0); HEMOGLOBIN 11.9 gm/dL (14.0-18.0); MCH 33.7 pg (26.0-34.0); MCHC 34.6 g/dL (28.0-37.0); MCV 97.4 fL (80.0-100.0); RBC 3.54 mil/uL (4.50-6.00); RDW 13.9 % (10.5-14.5)
[2020-12-11 06:13] LABS: CALCIUM 8.2 mg/dL (8.5-10.1); CREATININE 0.6 mg/dL (0.7-1.3); POTASSIUM 3.8 mmol/L (3.5-5.1)
[2020-12-11 08:00] VITALS: BP 108/69
[2020-12-11 09:15] VITALS: BP 108/69
--- NOTE | 2020-12-11 12:57 | NUR ---
Team meeting recommendation: Anticipated dc 24th or 27th. Speech to eval for cog and swallow. HH ( pt, ot, st, and nursing). BPCI. Case open, lives home alone, 6 steps enter the home and 6 steps inside. Has fww, cane and walking stick. Manage own medication. Was driving. Has sister who lives in [place].
--- NOTE | 2020-12-11 14:29 | NUR ---
ASSUMED C/O PT AT 0700 TODAY. PT A&OX4, VERY APACHE. WILLINGLY WORKS WITH THERAPIES. TOLERATING HEART HEALTHY DIET. STAEDY GAIT NOTED WITH WALKER, GAIT BELT. WILL CONTINUE TO MONIITOR
[2020-12-11 19:20] VITALS: BP 97/62
--- NOTE | 2020-12-12 05:29 | NUR ---
PATIENT HAS BEEN MENTIONING ABOUT NOT HAVING ANY BOWEL MOVEMENT YET.MIRALAX WAS GIVEN;WAITING FOR RESULT.PATIENT SLEPT.POC CONTINUED.
[2020-12-12 07:15] VITALS: BP 97/63
[2020-12-12 08:30] VITALS: BP 97/63
--- NOTE | 2020-12-12 15:52 | NUR ---
SPOKE WITH JACQUELINE GUTIERREZ, SISTER OF PATIENT. SHE WILL BRING IN SYNTHROID TOMORROW. STATES SHE CAN'T BE A CAREGIVER TO PT. SHE DID STATE SHE WOULD SET UP A WEEKLY PILL BOX WITH HIS MEDICATIONS BUT THAT IS ABOUT ALL SHE CAN DO.
[2020-12-12 19:35] VITALS: BP 106/64
--- NOTE | 2020-12-12 23:21 | NUR ---
PT ALERT AND ORIENTED X 4. VERY ANDREAFSKI. PT TOOK HS MEDS WITH WATER WITHOUT DIFFICULTY. PT DENIES PAIN OR DISCOMFORT. VOIDS YELLOW URINE PER URINAL. BED ALARM ON FOR SAFETY. PT APPEARS TO BE SLEEPING ON HOURLY ROUNDS.
[2020-12-13 07:47] VITALS: BP 102/65
[2020-12-13 08:35] VITALS: BP 102/65
--- NOTE | 2020-12-13 14:13 | NUR ---
ASSUMED C/O OF PATIENT AT 0700. PT A&OX4 WITH BOUTS OF CONFUSION AND FORGETFULLNESS. PT IS VERY [place]. PT USES CALL LIGHT APPROPIATELY. PT WORKS WITH THERAPIES. AT TIMES PT DOES NOT WANT TO GET OOB TO EAT. L KNEE SWOLLEN, ICE PACK PUSED PER ORDER. CALLED DR. PADILLA ABOUT PARAMETERS TO HOLD METROPROLOL. DR STATED TO GIVE MEDICATION EVEN WITH BP OF 97/63 HR 59, 106/64 HR 63, AND 102/65 HR 66. WILL CONTINUE TO MONITOR.
[2020-12-13 16:01] VITALS: BP 102/65
[2020-12-13 19:37] VITALS: BP 102/69
--- NOTE | 2020-12-14 01:06 | NUR ---
ASSUMED CARE APPROX 1900 EVENING 12/13. PT IMPULSIVE AT CHANGE OF SHIFT AND GOT UP ON HIS OWN AND GOT ONTO BSC WITHOUT CALLING STAFF. PT REMINDED TO ALWAYS CALL OUT FOR ASSISTANCE AND DO NOT GET UP ON HIS OWN. PT VERBALIZED UNDERSTANDING. PT VERY KEWEENAW AND SOMETIMES SHOUTS AT STAFF WITH REQUESTS. PT VOIDING PER URINAL. PT APPEARS TO BE SLEEPING SOUNDLY. BED ALARM ON AND CALL LIGHT IN REACH. WILL CONTINUE TO MONITOR.
[2020-12-14 05:04] LABS: ABSOLUTE NEUTROPHILS 3.4 thou/uL (1.4-8.2); BASOPHILS 1.9 % (0.0-2.0); HEMATOCRIT 34.4 % (42.0-52.0); LYMPHOCYTES 28.3 % (24.0-44.0); MCH 34.4 pg (26.0-34.0); MCHC 34.9 g/dL (28.0-37.0); MCV 98.5 fL (80.0-100.0); PLATELET COUNT 430 thou/uL (150-400); POLYS 55.8 % (36.0-66.0); RBC 3.49 mil/uL (4.50-6.00); WBC 6.2 thou/uL (4.0-11.0)
[2020-12-14 05:17] LABS: CALCIUM 8.5 mg/dL (8.5-10.1); CREATININE 0.8 mg/dL (0.7-1.3); MAGNESIUM 2.1 mg/dL (1.8-2.4)
[2020-12-14 07:45] VITALS: BP 114/65
--- NOTE | 2020-12-14 11:21 | NUR ---
ASSUMED CARE THIS MORNING AT 0700. PT IS A/OX4 VERY HARD IF HEARING. SKIN INTACT WITH NO TENTING. CAN STAND TO URINATE AND 1X ASST TO GO TO THE BEDSIDE COMMODE. ASSESSMENTS CHARTED AND OTHERWISE UNREMARKABLE. CALL LIGHT AND OTHER NEEDS WITHIN REACH. MEDS AND TX GIVEN NEEDED AND SCHEDULED. WILL CONTINUE TO MONITOR AND NOTE ANY CAHNGES.
--- NOTE | 2020-12-14 16:17 | NUR ---
Dc on 12/15/20 home with Cher britt [facility]. Supply sister will assist with setting up his medication and reminding him to take them. No driving till cleared by his PCP. His sister will pick him up and take him home. Bedside nurse to fax dc orders and sum to [phone]
[2020-12-14 19:54] VITALS: BP 89/59
--- NOTE | 2020-12-15 01:50 | NUR ---
assumed care approx 1900 evening 12/14. pt sitting up in bed at change of shift, alert and awake, very hard of hearing. pt voiding per urinal. pt took hs meds with water tolerating well. pt appears to be sleeping soundly. bed alarm on and call light in reach. will continue to monitor.
[2020-12-15] MEDS ORDERED: METOPROLOL SUCC25 M1 PO ×3 (08:13→11:00)
[2020-12-15] MEDS ORDERED: TAMBOCOR 100 M100 M1 PO ×2 (08:13→09:55)
[2020-12-15] MEDS ORDERED: CEFUROXIME250 MG PO ×2 (08:13→09:55)
[2020-12-15] MEDS ORDERED: VITAMIN D325 MC1 PO ×2 (08:13→09:55)
[2020-12-15] MEDS ORDERED: HOME MEDICATION PO ×2 (08:13)
[2020-12-15 10:12] VITALS: BP 102/65
--- NOTE | 2020-12-15 10:36 | NUR ---
ASSUMED CARE AT 0700. PATIENT IS ALERT AND ORIENTED X4, PATIENT IS DOUGLAS. PATIENT IS UP WITH WALKER AND IS INDEPENDENT IN ROOM. OPTIFOAMS CHANGED TO LEFT AND RIGHT ELBOWS. UP ON SIDE OF BED FOR MEALS. DIRECTOR OF CORPORATE RESPONSIBILITY HERE TO SEE PATIENT. FALL AND SAFETY PROTOCOLS IN PLACE. DENIES PAIN AT THIS TIME. CONTINUES TO PROGRESS TOWARDS D/C GOALS. PLAN D/C LATER TODAY. WILL CONTINUE TO MONITER.
--- NOTE | 2020-12-15 11:58 | NUR ---
PATIENT'S SISTER HERE. D/C INSTRUCTIONS GIVEN TO SISTER AND PATIENT. PATIENT AND SISTER VERBALIZED UNDERSTANDING OF D/C INSTRUCTIONS. PATIENT UNHAPPY ABOUT NOT BEING ABLE TO DRIVE UNTIL RELEASED BY HIS PCP. SISTER IS PLANNING ON STAYING WITH HIM . PATIENT WAS INDEPENDANT IN ROOM WITH WALKER. PATIENT LEFT UNINT IN GOOD CONDITION PER W/C WITH ALL OF HIS BELONGINGS. PATIENT WAS ABLE TO TRANSFER FROM W/C TO HIS SISTER'S CAR INDEPENDANTLY.
--- NOTE | 2020-12-17 09:39 | NUR ---
Cm received phone call from homer sister aman, i am at his house. Need home health set up, and he cant stay by himself. i was told he just needed checking on and setting up his medication per sister. Eligio active listening and apologized. Eligio asked bedside nurse for today to fax dc orders to [facility]. Eligio spoke with carla espinosaison. Will get on him on [facility] for hh visit today.
== END 2020-12-15 11:48 | disposition home health service (06) | DRG 947 ==
PROVIDERS: Nurse Practitioner; ADMIT Physical Medicine & Rehabilitation; ATTEND Physical Medicine & Rehabilitation
DX: R53.81 Other malaise (principal); J18.9 Pneumonia, unspecified organism; E87.1 Hypo-osmolality and hyponatremia; E46 Unspecified protein-calorie malnutrition; R26.89 Other abnormalities of gait and mobility; I49.5 Sick sinus syndrome; D64.9 Anemia, unspecified; E55.9 Vitamin D deficiency, unspecified; R29.6 Repeated falls; S80.02XA Contusion of left knee, initial encounter; I48.91 Unspecified atrial fibrillation; I10 Essential (primary) hypertension; E03.9 Hypothyroidism, unspecified; N40.1 Benign prostatic hyperplasia with lower urinary tract symptoms; R39.11 Hesitancy of micturition; G31.84 Mild cognitive impairment of uncertain or unknown etiology; S09.90XA Unspecified injury of head, initial encounter; W11.XXXA Fall on and from ladder, initial encounter; Y93.89 Activity, other specified; Y92.89 Other specified places as the place of occurrence of the external cause; Y99.8 Other external cause status; Z91.81 History of falling; Z68.22 Body mass index [BMI] 22.0-22.9, adult
CPT/HCPCS: 10112

== ENCOUNTER → 2021-02-27 | Outpatient (CLI) | payer OTHER, MEDICARE ==
[~2021-02-27] MED LIST changes: +HOME MEDICATION PO; +VITAMIN D325 MC1 PO
== END ==
LOC: SJCVC 13:31
PROVIDERS: ATTEND Internal Medicine Cardiovascular Disease
DX: I47.1 Supraventricular tachycardia (principal); Z88.2 Allergy status to sulfonamides; Z79.899 Other long term (current) drug therapy; Z72.89 Other problems related to lifestyle; F17.200 Nicotine dependence, unspecified, uncomplicated

== ENCOUNTER 2021-06-12 13:00 | Inpatient (IN) | payer OTHER, MEDICARE ==
[~2021-06-12] VITALS: Ht 167.6 cm; Wt 68.2 kg
--- NOTE | ~2021-06-12 | EMS ---
[facility] [address] [place] [address] EMS Patient Care Report Name: LUCILA,HOMER Room #: REG KAUR Dowd#: [id number] Admission: 06/12/21 Attend Phys: Discharge: Date of : 39 Report #: [id number] THIS REPORT FOR: //name// Report Transmitted: 06/12/2021 15:21 EMS Care Summary [place], [place]/[facility] Incident [id number] @ 06/12/2021 12:16 Incident Location [address] [place] [id number] Patient HOMER LUCILA Male, 81 Years 1940 Patient Address [address] [place] [address] Chief Complaint chronic back pain Disposition Transported No Lights/[place] Reason Falls Transported To [facility] Narrative pt found lying in bed, a&o, extremely [place], NAD. Pt fell approx 3 days ago and did not want to go to ER at that time. establishment guide called pt Dr today and they decided to should go in for a general evaluation. pt has no complaints other than chronic back pain. caregiver states some of pt issues are that he has been drinking more water and urinating less, he has a hoarse voice and mild increase in general weakness. pt able to stand and pivot to cot, VS transport w/o change, pt to wheelchair in triage. report to staff. Initial Vitals @12:43P: 70,R: 18,BP: 129/80,Pain: 4/10,GCS: 15,SpO2: 95,Revised Trauma: 12, [facility] [address] [place] [address] EMS Patient Care Report Name: LUCILA,HOMER Room #: REG DollyNorbertBrad#: [id number] Admission: 06/12/21 Attend Phys: Discharge: Date of : 39 Report #: [id number] Assessments @12:27MENTAL:Event Oriented,Place Oriented,Time Oriented,Person Oriented,Other,SKIN:No Abnormalities,HEENT:LUNG SOUNDS:ABDOMEN:PELVIS//GI:EXTREMITIES:Left Arm: Other,PULSE:Radial: 2+ Normal,NEURO: Impression Generalized Weakness Procedures @12:27 ALS Assessment Response: Unchanged @12:33 Stretcher Response: Unchanged @12:36 3-Lead ECG Response: Unchanged @12:30 Stairchair Response: Unchanged Timeline 12:13,Call Received 12:13,Dispatch Notified 12:16,Dispatched 12:16,En Route 12:26,On Scene 12:27,At Patient 12:27,ALS Assessment,Response: Unchanged 12:30,Stairchair,Response: Unchanged 12:33,Stretcher,Response: Unchanged 12:36,3-Lead ECG,Response: Unchanged 12:43,BP: 129/80 M,PULSE: 70,RR: 18 R,SPO2: 95 Ox,ETCO2: ,BG: ,PAIN: 4,GCS: 15, 12:43,Depart Scene 12:56,At Destination 13:16,Call Closed Disclaimer v1.1 Copyright 2021 [employer] This EMS Care Summary contains data elements from the applicable legal record (which may be displayed differently). It is designed to provide pertinent information for the following purposes: continuity of care, clinical quality, and state data reporting. The complete legal record is available to ED staff and administrators of the receiving hospital in ES's Patient Tracker. All data is provided "as is."
--- NOTE | ~2021-06-12 | EMS ---
[facility] [address] [place] [address] EMS Patient Care Report Name: LUCILA,HOMER Room #: 217-P ADM IN M.R.#: [id number] Admission: 06/12/21 Attend Phys: Kinga Jimenez MD Discharge: Date of : 39 Report #: [id number] THIS REPORT FOR: //name// Report Transmitted: 06/17/2021 14:34 EMS Care Summary [place], [place]/[facility] Incident [id number] @ 06/12/2021 12:16 Incident Location [address] [place] [address] Patient HOMER LUCILA Male, 81 Years 1940 Patient Address [address] [place] [address] Chief Complaint chronic back pain Disposition Transported No Lights/[place] Dispatch Reason Falls Transported To [facility] Narrative pt found lying in bed, a&o, extremely [place], NAD. Pt fell approx 3 days ago and did not want to go to ER at that time. flaking roll operator called pt today and they decided to should go in for a general evaluation. pt has no complaints other than chronic back pain. caregiver states some of pt issues are that he has been drinking more water and urinating less, he has a hoarse voice and mild increase in general weakness. pt able to stand and pivot to cot, VS transport w/o change, pt to wheelchair in triage. report to staff. Initial Vitals @12:43P: 70,R: 18,BP: 129/80,Pain: 4/10,GCS: 15,SpO2: 95,Revised Trauma: 12, [facility] [address] [place] [address] EMS Patient Care Report Name: LUCILA,HOMER Room #: 217-P ADM IN M.R.#: [id number] Admission: 06/12/21 Attend Phys: Kinga Jimenez MD Discharge: Date of : 39 Report #: [id number] Assessments @12:27MENTAL:Other,Person Oriented,Time Oriented,Place Oriented,Event Oriented,SKIN:No Abnormalities,HEENT:LUNG SOUNDS:ABDOMEN:PELVIS//GI:EXTREMITIES:Left Arm: Other,PULSE:Radial: 2+ Normal,NEURO: Impression Generalized Weakness Procedures @12:27 ALS Assessment Response: Unchanged @12:33 Stretcher Response: Unchanged @12:36 3-Lead ECG Response: Unchanged @12:30 Stairchair Response: Unchanged Timeline 12:13,Call Received 12:13,Dispatch Notified 12:16,Dispatched 12:16,En Route 12:26,On Scene 12:27,At Patient 12:27,ALS Assessment,Response: Unchanged 12:30,Stairchair,Response: Unchanged 12:33,Stretcher,Response: Unchanged 12:36,3-Lead ECG,Response: Unchanged 12:43,BP: 129/80 M,PULSE: 70,RR: 18 R,SPO2: 95 Ox,ETCO2: ,BG: ,PAIN: 4,GCS: 15, 12:43,Depart Scene 12:56,At Destination 13:16,Call Closed Disclaimer v1.1 Copyright 2021 [employer] This EMS Care Summary contains data elements from the applicable legal record (which may be displayed differently). It is designed to provide pertinent information for the following purposes: continuity of care, clinical quality, and state data reporting. The complete legal record is available to ED staff and administrators of the receiving hospital in [employer] Patient Tracker. All data is provided "as is."
[2021-06-12 13:03] VITALS: BP 78/56
[2021-06-12] MEDS ORDERED: METOPROLOL TART25 MG PO (13:36)
[2021-06-12 14:12] LABS: ABSOLUTE NEUTROPHILS 9.3 thou/uL (1.4-8.2); BASOPHILS 0.1 % (0.0-2.0); EOSINOPHILS 0.1 % (0.0-3.0); HEMATOCRIT 39.4 % (42.0-52.0); HEMOGLOBIN 13.3 gm/dL (14.0-18.0); LYMPHOCYTES 4.4 % (24.0-44.0); MCH 34.6 pg (26.0-34.0); MCHC 33.6 g/dL (28.0-37.0); MCV 102.9 fL (80.0-100.0); MONOCYTES 5.2 % (1.0-8.0); PLATELET COUNT 337 thou/uL (150-400); POLYS 90.2 % (36.0-66.0); RBC 3.83 mil/uL (4.50-6.00); RDW 15.3 % (10.5-14.5); WBC 10.4 thou/uL (4.0-11.0)
[2021-06-12 14:13] LABS: CALCIUM 9.2 mg/dL (8.5-10.1); CREATININE 0.9 mg/dL (0.7-1.3); POTASSIUM 5.2 mmol/L (3.5-5.1)
[2021-06-12 14:21] LABS: APTT 29.1 Seconds (24.5-32.8); INR 1.1; PROTIME 11.9 Seconds (10.5-12.1)
[2021-06-12 14:22] LABS: ALBUMIN 3.2 g/dL (3.4-5.0); TOTAL BILIRUBIN 1.3 mg/dL (0.2-1.0); TOTAL PROTEIN 7.3 g/dL (6.4-8.2)
[2021-06-12 18:14] LABS: URINE BILIRUBIN 1+ (Negative); URINE BLOOD NEGATIVE (Negative); URINE CLARITY SL CLOUDY; URINE COLOR ORANGE; URINE GLUCOSE-RANDOM* NEGATIVE (Negative); URINE KETONES TRACE (Negative); URINE LEUKOCYTES-REFLEX NEGATIVE (Negative); URINE NITRITE-REFLEX NEGATIVE (Negative); URINE PROTEIN (DIPSTICK) TRACE (Negative); URINE SPECIFIC GRAVITY 1.025 (1.005-1.035)
[2021-06-12 18:15] LABS: ICTOTEST (BILI CONFIRMATORY) Negative (Negative)
[2021-06-13 07:27] VITALS: BP 142/81
--- NOTE | 2021-06-13 08:39 | EKG ---
[address] [place] [address] ELECTROCARDIOGRAM REPORT Name: FRANCISCO GAYTAN Room #: 170-10 ADM IN M.R.#: [id number] Admission: 06/12/21 Attend Phys: Kinga Jimenez MD Discharge: Date of : 39 Report #: [id number] [facility] ED Test Date: 2021-06-12 Test Time: 13:41:44 Pat Name: FRANCISCO GAYTAN Department: Room: 170 Gender: M Animal Trapper: adilene : 1940 Requested By: Yin Donato Order Number: [id number] MD: Arnaldo Rutledge Measurements Intervals [place] Rate: 64 P: 61 WV: QRS: -33 QRSD: 141 T: 86 QT: 412 QTc: 425 Interpretive Statements NSR Right bundle branch block Compared to ECG 12/06/2020 10:38:04 Sinus tachycardia no longer present Left anterior fascicular block no longer present Electronically Signed On 06-13-2021 8:39:00 CLINIC LICENSED PRACTICAL NURSE by Arnaldo Rutledge [email or web address] <ELECTRONICALLY SIGNED> By: Arnaldo Rutledge MD, [facility] 06/13/21 0839 1341 1341 Arnaldo Rutledge MD, FACC /EPI
--- NOTE | 2021-06-13 08:39 | EKG ---
[address] [place] [address] ELECTROCARDIOGRAM REPORT Name: FRANCISCO GAYTAN Room #: 170-10 ADM IN M.R.#: [id number] Admission: 06/12/21 Attend Phys: Kinga Jimenez MD Discharge: Date of : 39 Report #: [id number] [facility] ED Test Date: 2021-06-12 Test Time: 15:22:01 Pat Name: FRANCISCO GAYTAN Department: Room: 170 10 Gender: M Stick Puller: [id number] : 1940 Requested By: Yin Donato Order Number: [id number] : Arnaldo Rutledge Measurements Intervals [place] Rate: 62 P: 42 LA: 178 QRS: -36 QRSD: 132 T: 44 QT: 418 QTc: 425 Interpretive Statements Sinus rhythm Atrial premature complex Right bundle branch block Compared to ECG 06/12/2021 13:41:44 Atrial premature complex(es) now present ST (T wave) deviation now present Electronically Signed On 06-13-2021 8:39:12 [employer] by Arnaldo Rutledge [email or web address] <ELECTRONICALLY SIGNED> By: Arnaldo Rutledge MD, [facility] 06/13/21 0839 1522 1522 Arnaldo Rutledge MD, [facility] /EPI
[2021-06-13 09:28] LABS: ABSOLUTE NEUTROPHILS 7.2 thou/uL (1.4-8.2); BASOPHILS 0.2 % (0.0-2.0); HEMATOCRIT 38.2 % (42.0-52.0); HEMOGLOBIN 12.6 gm/dL (14.0-18.0); LYMPHOCYTES 5.8 % (24.0-44.0); MONOCYTES 8.6 % (1.0-8.0); PLATELET COUNT 335 thou/uL (150-400); POLYS 85.4 % (36.0-66.0); RBC 3.71 mil/uL (4.50-6.00); RDW 15.1 % (10.5-14.5); WBC 8.5 thou/uL (4.0-11.0)
[2021-06-13 09:36] LABS: CALCIUM 8.7 mg/dL (8.5-10.1); CREATININE 0.7 mg/dL (0.7-1.3); MAGNESIUM 2.2 mg/dL (1.8-2.4); TOTAL BILIRUBIN 0.8 mg/dL (0.2-1.0); TOTAL PROTEIN 6.6 g/dL (6.4-8.2)
[2021-06-13 09:37] LABS: POTASSIUM 3.8 mmol/L (3.5-5.1)
[2021-06-13 11:07] VITALS: BP 156/100
[2021-06-13 17:36] VITALS: BP 110/72
[2021-06-13 18:04] VITALS: BP 111/67
[2021-06-13 19:30] VITALS: BP 114/68
[2021-06-13 23:50] VITALS: BP 97/64
[2021-06-14 04:35] VITALS: BP 107/57
[2021-06-14 07:42] VITALS: BP 109/55
[2021-06-14 11:45] LABS: CALCIUM 7.6 mg/dL (8.5-10.1); CREATININE 0.5 mg/dL (0.7-1.3); POTASSIUM 3.6 mmol/L (3.5-5.1)
[2021-06-14 14:16] VITALS: BP 144/70
[2021-06-14 17:47] VITALS: BP 83/57
[2021-06-14 20:15] VITALS: BP 91/57
[2021-06-15 04:45] VITALS: BP 111/66
[2021-06-15 08:59] VITALS: BP 128/71
[2021-06-15 13:31] LABS: ABSOLUTE NEUTROPHILS 6.3 thou/uL (1.4-8.2); BASOPHILS 0.1 % (0.0-2.0); HEMATOCRIT 26.9 % (42.0-52.0); LYMPHOCYTES 7.4 % (24.0-44.0); MCH 34.7 pg (26.0-34.0); MCHC 33.5 g/dL (28.0-37.0); MCV 103.5 fL (80.0-100.0); MONOCYTES 9.9 % (1.0-8.0); PLATELET COUNT 268 thou/uL (150-400); POLYS 82.6 % (36.0-66.0); WBC 7.6 thou/uL (4.0-11.0)
[2021-06-15 13:49] LABS: ALBUMIN 2.4 g/dL (3.4-5.0); CREATININE 0.8 mg/dL (0.7-1.3); POTASSIUM 3.5 mmol/L (3.5-5.1); TOTAL BILIRUBIN 0.5 mg/dL (0.2-1.0); TOTAL PROTEIN 5.5 g/dL (6.4-8.2)
[2021-06-15 16:55] VITALS: BP 97/68
[2021-06-15 20:19] VITALS: BP 115/70
[2021-06-15 23:26] VITALS: BP 99/52
[2021-06-16 03:25] LABS: ABSOLUTE NEUTROPHILS 4.6 thou/uL (1.4-8.2); BASOPHILS 0.1 % (0.0-2.0); EOSINOPHILS 0.3 % (0.0-3.0); HEMATOCRIT 22.1 % (42.0-52.0); HEMOGLOBIN 7.6 gm/dL (14.0-18.0); LYMPHOCYTES 16.9 % (24.0-44.0); MCH 34.5 pg (26.0-34.0); MCHC 34.2 g/dL (28.0-37.0); MONOCYTES 10.9 % (1.0-8.0); PLATELET COUNT 257 thou/uL (150-400); POLYS 71.8 % (36.0-66.0); RBC 2.19 mil/uL (4.50-6.00); RDW 14.6 % (10.5-14.5); WBC 6.4 thou/uL (4.0-11.0)
[2021-06-16 04:07] LABS: CALCIUM 7.4 mg/dL (8.5-10.1); CREATININE 0.7 mg/dL (0.7-1.3); MAGNESIUM 1.8 mg/dL (1.8-2.4); PHOSPHORUS 1.5 mg/dL (2.5-4.9)
[2021-06-16 06:13] VITALS: BP 128/78
[2021-06-16 08:42] VITALS: BP 135/83
[2021-06-16 09:20] LABS: HEMATOCRIT 25.4 % (42.0-52.0); HEMOGLOBIN 8.7 gm/dL (14.0-18.0)
[2021-06-16 12:39] VITALS: BP 138/84
--- NOTE | 2021-06-16 14:29 | O ---
[facility] [place] [address] OPERATIVE REPORT Name: LUCILA,HOMER Room #: [address] [place] [address] IN M.R.#: [id number] Admission: 06/12/21 Attend Phys: Kinga Jimenez MD Discharge: Date of : 39 Report #: [id number] THIS REPORT FOR: cc: Antonieta Maria K. Steven DO Patterson,Tao Curiel MD ~ DATE OF SERVICE: 06/14/2021 PREOPERATIVE DIAGNOSIS: Bilateral inguinal hernias. POSTOPERATIVE DIAGNOSIS: Bilateral inguinal hernias. OPERATION: Laparoscopic repair of bilateral inguinal hernias with mesh. SURGEON: Tao Patel MD ANESTHESIA: General. ESTIMATED BLOOD LOSS: Minimal. SPECIMENS: None. DESCRIPTION OF PROCEDURE: After informed consent was obtained, the patient was brought to the operating room and placed supine. SCDs were placed and working, preoperative antibiotics were administered, general anesthesia was induced. The abdomen was prepped and draped in the usual sterile fashion. A 10 mm incision was made below the umbilicus. Fascia was incised and a trocar was placed. Pneumoperitoneum was established. Right and left lower quadrant 5 mm trocars were placed under direct vision. The peritoneum at the right ASIS was scored. Peritoneum was then incised and reflected inferiorly. This allowed visualization of the pubic bone. The cord structures were identified and protected. He had a large indirect hernia. The hernia sac was fully reduced protecting the cord structures. I then inserted a large Bard 3DMax light mesh. It was tacked to Orestes's ligament with 2 absorbable tacks. I then reapproximated the peritoneum over the mesh with the tacker as well. There was 100% coverage of the mesh. Attention was then directed to the left side. The peritoneum again was scored at the left ASIS. Peritoneum was incised and reflected inferiorly. The pubic bone was identified. The iliac vessels were identified. Cord structures were identified. He had a smaller indirect hernia on this side. The hernia sac was fully reduced. I then inserted a medium Bard 3DMax light mesh. It was tacked to Orestes's ligament with 2 absorbable tacks. I then reapproximated the peritoneum with a tacker as well. This was a medium size mesh on the left side. [address] [address] OPERATIVE REPORT Name: HENRYETTA,ARTHUR Room #: 217-P [facility] IN M.R.#: [id number] Admission: 06/12/21 Attend Phys: Kinga Jimenez MD Discharge: Date of : 39 Report #: [id number] The ports were then removed under direct vision. The fascia was closed with a [id number]-dpqtr 0 Vicryl. Skin was closed with 4-0 Monocryl. Incisions were dressed with Steri-Strips. COMPLICATIONS: None. DISPOSITION: The patient was taken to recovery in satisfactory condition. <ELECTRONICALLY SIGNED> By: Tao Patel MD 06/16/21 1429 1440 1551 Tao Patel MD /jay
[2021-06-16 16:20] VITALS: BP 121/70
[2021-06-16 19:24] VITALS: BP 118/77
[2021-06-17 03:51] LABS: ABSOLUTE NEUTROPHILS 4.4 thou/uL (1.4-8.2); BASOPHILS 0.2 % (0.0-2.0); EOSINOPHILS 1.7 % (0.0-3.0); HEMATOCRIT 21.5 % (42.0-52.0); HEMOGLOBIN 7.4 gm/dL (14.0-18.0); LYMPHOCYTES 21.8 % (24.0-44.0); MCH 34.6 pg (26.0-34.0); MCHC 34.4 g/dL (28.0-37.0); MCV 100.5 fL (80.0-100.0); MONOCYTES 10.1 % (1.0-8.0); PLATELET COUNT 282 thou/uL (150-400); POLYS 66.2 % (36.0-66.0); RBC 2.13 mil/uL (4.50-6.00); RDW 14.6 % (10.5-14.5); WBC 6.6 thou/uL (4.0-11.0)
[2021-06-17 04:09] LABS: ALBUMIN 1.9 g/dL (3.4-5.0); CREATININE 0.5 mg/dL (0.7-1.3); MAGNESIUM 1.8 mg/dL (1.8-2.4); PHOSPHORUS 1.8 mg/dL (2.5-4.9); POTASSIUM 3.2 mmol/L (3.5-5.1); TOTAL BILIRUBIN 0.4 mg/dL (0.2-1.0); TOTAL PROTEIN 4.6 g/dL (6.4-8.2)
[2021-06-17 06:01] VITALS: BP 135/71
[2021-06-17 07:22] VITALS: BP 126/69
[2021-06-17 12:07] VITALS: BP 119/70
[2021-06-17 15:40] VITALS: BP 131/72
[2021-06-17 19:30] VITALS: BP 130/77
[2021-06-18 03:05] VITALS: BP 147/81
[2021-06-18 08:00] VITALS: BP 134/71
[2021-06-18 12:00] VITALS: BP 116/73
[2021-06-18 13:21] LABS: ABSOLUTE NEUTROPHILS 6.1 thou/uL (1.4-8.2); BASOPHILS 0.5 % (0.0-2.0); EOSINOPHILS 1.1 % (0.0-3.0); HEMATOCRIT 27.7 % (42.0-52.0); HEMOGLOBIN 9.2 gm/dL (14.0-18.0); MCH 34.3 pg (26.0-34.0); MCHC 33.4 g/dL (28.0-37.0); MCV 102.5 fL (80.0-100.0); MONOCYTES 9.8 % (1.0-8.0); POLYS 77.6 % (36.0-66.0); WBC 7.9 thou/uL (4.0-11.0)
[2021-06-18 13:40] LABS: PLATELET COUNT 417 thou/uL (150-400)
[2021-06-18 13:41] LABS: CALCIUM 7.8 mg/dL (8.5-10.1); CREATININE 0.6 mg/dL (0.7-1.3); MAGNESIUM 1.8 mg/dL (1.8-2.4); PHOSPHORUS 2.3 mg/dL (2.6-4.7); POTASSIUM 3.3 mmol/L (3.5-5.1)
[2021-06-18 15:30] VITALS: BP 137/80
[2021-06-18 19:50] VITALS: BP 124/72
[2021-06-19 04:30] VITALS: BP 125/70
[2021-06-19 08:19] LABS: HEMATOCRIT 25.7 % (42.0-52.0); HEMOGLOBIN 8.7 gm/dL (14.0-18.0); MCH 34.7 pg (26.0-34.0); MCHC 33.8 g/dL (28.0-37.0); MCV 102.7 fL (80.0-100.0); RBC 2.5 mil/uL (4.50-6.00); RDW 15.3 % (10.5-14.5); WBC 8.1 thou/uL (4.0-11.0)
[2021-06-19 08:34] LABS: CALCIUM 7.6 mg/dL (8.5-10.1); CREATININE 0.6 mg/dL (0.7-1.3); POTASSIUM 3.2 mmol/L (3.5-5.1)
[2021-06-19 09:23] VITALS: BP 130/73
[2021-06-19 12:09] VITALS: BP 113/65
[2021-06-19 16:11] VITALS: BP 113/67
[2021-06-19 19:33] VITALS: BP 115/62
[2021-06-20 03:44] VITALS: BP 118/68
[2021-06-20 07:36] VITALS: BP 137/86
[2021-06-20 09:03] LABS: HEMATOCRIT 27.5 % (42.0-52.0); HEMOGLOBIN 9.5 gm/dL (14.0-18.0); MCH 35.3 pg (26.0-34.0); MCHC 34.4 g/dL (28.0-37.0); MCV 102.6 fL (80.0-100.0); RBC 2.68 mil/uL (4.50-6.00); RDW 14.9 % (10.5-14.5); WBC 8.5 thou/uL (4.0-11.0)
[2021-06-20 09:14] LABS: CALCIUM 7.8 mg/dL (8.5-10.1); CREATININE 0.6 mg/dL (0.7-1.3); POTASSIUM 3.6 mmol/L (3.5-5.1)
[2021-06-20 12:44] VITALS: BP 119/71
== END 2021-06-20 16:19 | DRG 350 ==
LOC: ER 13:00 → 2N 17:26 → EROBS 17:26 → 2N 06-13 18:06
PROVIDERS: Hospitalist; Internal Medicine; Nurse Practitioner; Nurse Practitioner Family; ADMIT Surgery; ATTEND Surgery
PROC: 0YUA4JZ Supplement Bilateral Inguinal Region with Synthetic Substitute, Percutaneous Endoscopic Approach (ICD-10-PCS; principal; 2021-06-14)
DX: K40.00 Bilateral inguinal hernia, with obstruction, without gangrene, not specified as recurrent (principal); J18.9 Pneumonia, unspecified organism; S22.49XA Multiple fractures of ribs, unspecified side, initial encounter for closed fracture; S32.10XA Unspecified fracture of sacrum, initial encounter for closed fracture; S32.039A Unspecified fracture of third lumbar vertebra, initial encounter for closed fracture; S32.049A Unspecified fracture of fourth lumbar vertebra, initial encounter for closed fracture; S22.069A Unspecified fracture of T7-T8 vertebra, initial encounter for closed fracture; E87.1 Hypo-osmolality and hyponatremia; E44.0 Moderate protein-calorie malnutrition; J44.0 Chronic obstructive pulmonary disease with (acute) lower respiratory infection; E87.5 Hyperkalemia; I48.0 Paroxysmal atrial fibrillation; Z20.822 Contact with and (suspected) exposure to COVID-19; W18.39XA Other fall on same level, initial encounter; Y93.89 Activity, other specified; Y92.89 Other specified places as the place of occurrence of the external cause; Y99.8 Other external cause status; D64.9 Anemia, unspecified; F17.210 Nicotine dependence, cigarettes, uncomplicated; K59.00 Constipation, unspecified; Z68.24 Body mass index [BMI] 24.0-24.9, adult; F03.90 Unspecified dementia, unspecified severity, without behavioral disturbance, psychotic disturbance, mood disturbance, and anxiety; I10 Essential (primary) hypertension
CPT/HCPCS: 10081; 50010; 50101; 50411; 50455; 50507; 50555; 50687; 51297; 51489; 52265; 52266; 53307; 53314; 56462; 56525; 56526; 58574; 58633; 62110; 62900; 70005